=== PATIENT | female | born 2000 | race African-American/Black ===

== ENCOUNTER 2020-01-02 16:07 | Emergency (ER) | payer OTHER, SELFPAY ==
[2020-01-02] VITALS (10 sets, daily range): BP systolic 116–151; BP diastolic 65–80; PULSE 102–107; RESP 18; TEMP 37.1; O2SAT 97–100; BMI 30.7
[2020-01-02 16:45] LABS: Bacteria Urine Few (2-10); Culture Indicated Urine Specimen Cultured; Mucus Urine 2+ (Negative); RBC Urine 0-1/HPF (0-5/HPF); Squamous Epithelial Cell Urine 1-5 /HPF (0-5/HPF); WBC Urine 5-10/HPF (0-5/HPF)
[2020-01-02] MEDS: ONDANSETRON 4 MG/2 ML INJ IV (18:30)
[2020-01-02] MEDS: SODIUM CHLORIDE 0.9% 1,000 ML 1000 ML IV (18:30)
[2020-01-02 18:35] LABS: Add Manual Diff / Slide Review NO; Basophils Absolute Auto 100 /uL (0-100); Basophils Percent Auto 0.5 % (0-2); Eosinophils Absolute Auto 100 /uL (0-450); Eosinophils Percent Auto 0.5 % (2-4); Hematocrit 36.6 % (36-46); Hemoglobin 12.4 g/dL (12.0-16.0); Lymphocytes Absolute Auto 1700 /uL (1100-4500); Lymphocytes Percent Auto 15.1 % (25-40); Mean Corpuscular HGB Conc 33.9 % (30-36); Mean Corpuscular Hemoglobin 28.5 PG (26-34); Mean Corpuscular Volume 84.1 fL (80-100); Monocytes Absolute Auto 700 /uL (0-900); Monocytes Percent Auto 6.6 % (3-14); Neutrophils Absolute Auto 8800 /uL (1500-7000); Neutrophils Percent Auto 77.3 % (50-75); Platelet Count 348 X10^3/uL (150-400); Red Blood Cell Count 4.35 X10^6/uL (4.0-5.2); Red Cell Distribution Width 13.1 % (11.6-14.8); White Blood Cell Count 11.4 X10^3/uL (4.5-11.0)
[2020-01-02 18:44] LABS: INR 1.1 (0.9-1.3); Prothrombin Time 12.3 SECONDS (10.1-12.7)
[2020-01-02 18:47] LABS: PTT Partial Thromboplastin Tim 31 SECONDS (26.4-36.2)
[2020-01-02 18:48] LABS: Alanine Aminotransferase 40 IU/L (<35); Albumin 4.7 g/dL (3.5-5.0); Albumin Globulin Ratio 1.2 (1.0-2.8); Alkaline Phosphatase 92 U/L (38-126); Amylase 48 U/L (30-110); Aspartate Aminotransferase 35 IU/L (14-36); BUN Creatinine Ratio 17.7 (6-22); Bilirubin Total 1.1 mg/dL (0.2-1.3); Blood Urea Nitrogen 14 mg/dL (7-17); Calcium 9.7 mg/dL (8.4-10.2); Carbon Dioxide 29 mmol/L (22-32); Chloride 99 mmol/L (98-107); Estimated Glomerular Filt Rate > 60.0 mL/min (>60); Globulin 3.9 g/dL (1.7-4.1); Glucose 95 mg/dL (70-100); HEMOLYSIS < 15 (0-50); Lipase 30 U/L (23-300); Sodium 137 mmol/L (137-145); Total Protein 8.6 g/dL (6.3-8.2)
[2020-01-02] MEDS: KETOROLAC 60 MG/2 ML VIAL 30 MG IV (19:08)
[2020-01-02] MEDS: metroNIDAZOLE 250 MG TABLET 500 MG PO (20:07)
[2020-01-02] MEDS: DOXYCYCLINE HYCLATE 100 MG TABLET PO (20:07)
--- NOTE | 2020-01-02 20:20 | ED.FEMALEGU ---
HPI - Female Genitourinary <FABIAN HullBC - Last Filed: 01/02/20 20:47> General Chief complaint: Urogenital-Female Stated complaint: Uterine Contractions and Pain, Has IUD Time Seen by Provider: 01/02/20 17:11 Source: patient Mode of arrival: Ambulatory Limitations: no limitations History of Present Illness HPI Narrative: The patient is a 19-year-old female who denies pertinent medical history presents with a chief complaint of pelvic cramping. She states it has been about over the past day. She denies any fevers complains of nausea no vomiting. She does have an IUD. She states she recently had a pelvic ultrasound done less than a month ago. She denies any specific spot of pain rather general lower abdominal pain. No fevers. No cough or congestion. She denies any dysuria urgency or frequency. She denies any genital rashes. She denies any known sexually transmitted infection exposures, though states that her cheated on her recently so she is concerned that she might have been exposed to something she did not know about. Related Data Previous Rx's Medication Instructions Recorded doxycycline hyclate 100 mg PO BID 14 Days #28 tab 01/02/20 metronidazole [Flagyl] 500 mg PO BID 14 Days #28 tab 01/02/20 nitrofurantoin monohyd/m-cryst 100 mg PO Q12H 7 Days #14 cap 01/02/20 [Macrobid] Allergies Allergy/AdvReac Type Severity Reaction Status Date / Time No Known Drug Allergies Allergy Verified 01/02/20 17:02 Review of Systems <SPENCER Hull - Last Filed: 01/02/20 20:47> Review of Systems Narrative: GENERAL: Denies chills, fatigue, malaise, fever, sweats. HEENT: Denies sinus pain, ear pain, sore throat, difficulty swallowing, dizziness. RESPIRATORY: Denies dyspnea, cough, wheezing, hemoptysis, sputum. CARDIOVASCULAR: Denies chest pain, palpitations, orthopnea, edema, GASTROINTESTINAL: Denies nausea, vomiting, abdominal pain, diarrhea, constipation, melena. : See HPI MUSCULOSKELETAL: denies weakness, joint pain, or bony pain SKIN: Denies rash, skin lesions, or other NEUROLOGIC: Denies weakness, headache, numbness, change in speech, confusion, seizures, incoordination. PSYCHIATRIC: No concerning psychosocial issues. 12 point review of systems is negative except for those stated above Patient History <SPENCER Hull - Last Filed: 01/02/20 20:47> Substance Use Type: does not use Exam <SPENCER Hull - Last Filed: 01/02/20 20:47> Narrative Exam Narrative: GENERAL: This is a well-nourished, well-developed patient, in no acute distress HEAD: Atraumatic. Normocephalic. No temporal or scalp tenderness. EYES: Pupils equal round and reactive. Extraocular motions intact. No scleral icterus. No injection or drainage. ENT: Nose without bleeding, purulent drainage or septal hematoma. Throat without erythema, tonsillar hypertrophy or exudate. Uvula midline. Airway patent. NECK: Trachea midline. No JVD or lymphadenopathy. Supple, nontender, no meningeal signs. CARDIOVASCULAR: Regular rate and rhythm RESPIRATORY: Clear to auscultation. Breath sounds equal bilaterally. No wheezes, rales, or rhonchi. No cough. No increased respiratory effort. No accessory muscle use. GASTROINTESTINAL: Abdomen soft, diffuse suprapubic tenderness, nondistended. No hepato-splenomegaly, or palpable masses. No guarding. : With Chance RN at bedside for media consultant outside sales, no obvious rashes, yellowish creamy vaginal discharge noted at cervical os. cervical motion tenderness on exam. EXTREMITIES: No clubbing, cyanosis, or edema. No joint tenderness, effusion, or edema noted. BACK: Nontender without deformity or crepitance. No flank tenderness. NEURO: AOx3. SKIN: No rash or erythema on visible skin Initial Vital Signs Initial Vital Signs: Vital Signs Pulse Rate 107 H 01/02/20 17:00 Pulse Oximetry 100 01/02/20 17:00 <Nehemiah Reese DO - Last Filed: 01/02/20 20:55> Initial Vital Signs Initial Vital Signs: Vital Signs Pulse Rate 107 H 01/02/20 17:00 Pulse Oximetry 100 01/02/20 17:00 Scores <SPENCER Hull - Last Filed: 01/02/20 20:47> GCS Sameera coma scale eye opening: Spontaneous Sameera coma scale verbal response: Orientated Sameera coma scale motor response: Obey commands Sameera coma scale total score: 15 Course <Joann Ethan SEED LABORATORY ASSISTANT-BC - Last Filed: 01/02/20 20:47> Orders Ordered: ED Orders 01/02/20 16:25 Urine Culture Stat Urine Microscopic Stat 01/02/20 18:25 Amylase Stat Complete Blood Count AUTO DIFF Stat Comprehensive Metabolic Panel Stat Lipase Stat Partial Thromboplastin Time Stat Prothrombin Time INR Stat 01/02/20 18:55 Chlamydia Gonorrhea PCR -URINE Stat Genital Culture Stat 01/02/20 19:20 Wet Prep Tric BV Tenisha Stat Discontinued Medications Hydrocodone Bitart/Acetaminophen ([place] 5/325) 1 tab PO NOW ONE Stop: 01/02/20 20:18 Last Admin: 01/02/20 20:27 Dose: 1 tab Documented by: ROBERT Hydrocodone Bitart/Acetaminophen (Vicodin 5/325 Prepack) 1 bottle MISC SEEINSTR ONE Stop: 01/02/20 20:18 Last Admin: 01/02/20 20:27 Dose: 1 bottle Documented by: ROBERT Ceftriaxone Sodium (Rocephin) 250 mg IM NOW ONE Stop: 01/02/20 19:51 Last Admin: 01/02/20 20:28 Dose: 250 mg Documented by: ROBERT Doxycycline Hyclate (Vibramycin) 100 mg PO NOW ONE Stop: 01/02/20 19:49 Last Admin: 01/02/20 20:07 Dose: 100 mg Documented by: ROBERT Sodium Chloride (Normal Saline 0.9%) 1,000 mls @ 1,000 mls/hr IV BOLUS ONE Stop: 01/02/20 18:48 Last Infusion: 01/02/20 19:54 Dose: 0 mls/hr Documented by: Admin: 01/02/20 18:30 Dose: 1,000 mls/hr Documented by: ROBERT Ketorolac Tromethamine (Toradol) 30 mg IV NOW ONE Stop: 01/02/20 18:40 Last Admin: 01/02/20 19:08 Dose: 30 mg Documented by: ROBERT Metronidazole (Metronidazole) 500 mg PO NOW ONE Stop: 01/02/20 19:49 Last Admin: 01/02/20 20:07 Dose: 500 mg Documented by: ROBERT Nitrofurantoin Macrocrystals (Macrobid 100 Mg Capsule) 100 mg PO NOW ONE Stop: 01/02/20 20:18 Last Admin: 01/02/20 20:27 Dose: 100 mg Documented by: ROBERT Ondansetron HCl (Zofran) 4 mg IV NOW ONE Stop: 01/02/20 17:50 Last Admin: 01/02/20 18:30 Dose: 4 mg Documented by: ROBERT Ondansetron HCl (Zofran Odt Prepack) 1 bottle MISC SEEINSTR ONE Stop: 01/02/20 20:18 Last Admin: 01/02/20 20:27 Dose: 1 bottle Documented by: ROBERT Vital Signs Vital signs: Vital Signs - 8 hr 01/02/20 17:00 01/02/20 17:02 01/02/20 17:30 Temperature 98.8 F Pulse Rate 107 H 102 H 104 H Respiratory Rate 18 Blood Pressure 151/67 H Pulse Oximetry 100 100 100 01/02/20 18:00 01/02/20 18:29 01/02/20 18:30 Temperature Pulse Rate 102 H 103 H 103 H Respiratory Rate Blood Pressure 116/80 Pulse Oximetry 100 100 100 01/02/20 18:48 01/02/20 18:49 01/02/20 20:35 Temperature Pulse Rate 103 H Respiratory Rate Blood Pressure 125/65 Pulse Oximetry 98 98 01/02/20 20:36 Temperature Pulse Rate 106 H Respiratory Rate Blood Pressure 118/76 Pulse Oximetry 97 <Nehemiah Reese DO - Last Filed: 01/02/20 20:55> Orders Ordered: ED Orders 01/02/20 16:25 Urine Culture Stat Urine Microscopic Stat 01/02/20 18:25 Amylase Stat Complete Blood Count AUTO DIFF Stat Comprehensive Metabolic Panel Stat Lipase Stat Partial Thromboplastin Time Stat Prothrombin Time INR Stat 01/02/20 18:55 Chlamydia Gonorrhea PCR -URINE Stat Genital Culture Stat 01/02/20 19:20 Wet Prep Tric BV Tenisha Stat Discontinued Medications Hydrocodone Bitart/Acetaminophen ([place] 5/325) 1 tab PO NOW ONE Stop: 01/02/20 20:18 Last Admin: 01/02/20 20:27 Dose: 1 tab Documented by: ROBERT Hydrocodone Bitart/Acetaminophen (Vicodin 5/325 Prepack) 1 bottle MISC SEEINSTR ONE Stop: 01/02/20 20:18 Last Admin: 01/02/20 20:27 Dose: 1 bottle Documented by: ROBERT Ceftriaxone Sodium (Rocephin) 250 mg IM NOW ONE Stop: 01/02/20 19:51 Last Admin: 01/02/20 20:28 Dose: 250 mg Documented by: ROBERT Doxycycline Hyclate (Vibramycin) 100 mg PO NOW ONE Stop: 01/02/20 19:49 Last Admin: 01/02/20 20:07 Dose: 100 mg Documented by: ROBERT Sodium Chloride (Normal Saline 0.9%) 1,000 mls @ 1,000 mls/hr IV BOLUS ONE Stop: 01/02/20 18:48 Last Infusion: 01/02/20 19:54 Dose: 0 mls/hr Documented by: Admin: 01/02/20 18:30 Dose: 1,000 mls/hr Documented by: ROBERT Ketorolac Tromethamine (Toradol) 30 mg IV NOW ONE Stop: 01/02/20 18:40 Last Admin: 01/02/20 19:08 Dose: 30 mg Documented by: ROBERT Metronidazole (Metronidazole) 500 mg PO NOW ONE Stop: 01/02/20 19:49 Last Admin: 01/02/20 20:07 Dose: 500 mg Documented by: ROBERT Nitrofurantoin Macrocrystals (Macrobid 100 Mg Capsule) 100 mg PO NOW ONE Stop: 01/02/20 20:18 Last Admin: 01/02/20 20:27 Dose: 100 mg Documented by: ROBERT Ondansetron HCl (Zofran) 4 mg IV NOW ONE Stop: 01/02/20 17:50 Last Admin: 01/02/20 18:30 Dose: 4 mg Documented by: ROBERT Ondansetron HCl (Zofran Odt Prepack) 1 bottle MISC SEEINSTR ONE Stop: 01/02/20 20:18 Last Admin: 01/02/20 20:27 Dose: 1 bottle Documented by: ROBERT Vital Signs Vital signs: Vital Signs - 8 hr 01/02/20 17:00 01/02/20 17:02 01/02/20 17:30 Temperature 98.8 F Pulse Rate 107 H 102 H 104 H Respiratory Rate 18 Blood Pressure 151/67 H Pulse Oximetry 100 100 100 01/02/20 18:00 01/02/20 18:29 01/02/20 18:30 Temperature Pulse Rate 102 H 103 H 103 H Respiratory Rate Blood Pressure 116/80 Pulse Oximetry 100 100 100 01/02/20 18:48 01/02/20 18:49 01/02/20 20:35 Temperature Pulse Rate 103 H Respiratory Rate Blood Pressure 125/65 Pulse Oximetry 98 98 01/02/20 20:36 Temperature Pulse Rate 106 H Respiratory Rate Blood Pressure 118/76 Pulse Oximetry 97 MDM - Female Genitourinary <Joann Long, SEED LABORATORY ASSISTANT- - Last Filed: 01/02/20 20:47> Lab Data Result diagrams: 01/02/20 18:25 01/02/20 18:25 Labs: Lab Results 01/02/20 01/02/20 01/02/20 Range/Units 16:25 18:25 18:25 WBC 11.4 H (4.5-11.0) X10^3/uL RBC 4.35 (4.0-5.2) X10^6/uL Hgb 12.4 (12.0-16.0) g/dL Hct 36.6 (36-46) % MCV 84.1 (80-100) fL MCH 28.5 (26-34) PG MCHC 33.9 (30-36) % RDW 13.1 (11.6-14.8) % Plt Count 348 (150-400) X10^3/uL Neut % (Auto) 77.3 H (50-75) % Lymph % (Auto) 15.1 L (25-40) % [place] % (Auto) 6.6 (3-14) % Eos % (Auto) 0.5 L (2-4) % Baso % (Auto) 0.5 (0-2) % Neut # (Auto) 8800 H (5579-9283) /uL Lymph # (Auto) 1700 (9122-0572) /uL [place] # (Auto) 700 (0-900) /uL Eos # (Auto) 100 (0-450) /uL Baso # (Auto) 100 (0-100) /uL PT 12.3 (10.1-12.7) SECONDS INR 1.1 (0.9-1.3) APTT 31 (26.4-36.2) SECONDS Sodium (137-145) mmol/L Potassium (3.4-5.1) mmol/L Chloride (98-107) mmol/L Carbon Dioxide (22-32) mmol/L BUN (7-17) mg/dL Creatinine (0.52-1.04) mg/dL Estimated GFR (>60) mL/min BUN/Creatinine Ratio (6-22) Glucose (70-100) mg/dL Calcium (8.4-10.2) mg/dL Total Bilirubin (0.2-1.3) mg/dL AST (14-36) IU/L ALT (<35) IU/L Alkaline Phosphatase (38-126) U/L Total Protein (6.3-8.2) g/dL Albumin (3.5-5.0) g/dL Globulin (1.7-4.1) g/dL Albumin/Globulin Ratio (1.0-2.8) Amylase (30-110) U/L Lipase (23-300) U/L Urine RBC 0-1/hpf (0-5/HPF) Urine WBC 5-10/hpf H (0-5/HPF) Ur Squamous Epith Cells 1-5 /hpf (0-5/HPF) Urine Bacteria Few (2-10) H (None) Urine Mucus 2+ H (Negative) Ur Culture Indicated? Specimen cultured 01/02/20 Range/Units 18:25 WBC (4.5-11.0) X10^3/uL RBC (4.0-5.2) X10^6/uL Hgb (12.0-16.0) g/dL Hct (36-46) % MCV (80-100) fL MCH (26-34) PG MCHC (30-36) % RDW (11.6-14.8) % Plt Count (150-400) X10^3/uL Neut % (Auto) (50-75) % Lymph % (Auto) (25-40) % [place] % (Auto) (3-14) % Eos % (Auto) (2-4) % Baso % (Auto) (0-2) % Neut # (Auto) (1440-1966) /uL Lymph # (Auto) (9717-2338) /uL [place] # (Auto) (0-900) /uL Eos # (Auto) (0-450) /uL Baso # (Auto) (0-100) /uL PT (10.1-12.7) SECONDS INR (0.9-1.3) APTT (26.4-36.2) SECONDS Sodium 137 (137-145) mmol/L Potassium 4.0 (3.4-5.1) mmol/L Chloride 99 (98-107) mmol/L Carbon Dioxide 29 (22-32) mmol/L BUN 14 (7-17) mg/dL Creatinine 0.79 (0.52-1.04) mg/dL Estimated GFR > 60.0 (>60) mL/min BUN/Creatinine Ratio 17.7 (6-22) Glucose 95 (70-100) mg/dL Calcium 9.7 (8.4-10.2) mg/dL Total Bilirubin 1.1 (0.2-1.3) mg/dL AST 35 (14-36) IU/L ALT 40 H (<35) IU/L Alkaline Phosphatase 92 (38-126) U/L Total Protein 8.6 H (6.3-8.2) g/dL Albumin 4.7 (3.5-5.0) g/dL Globulin 3.9 (1.7-4.1) g/dL Albumin/Globulin Ratio 1.2 (1.0-2.8) Amylase 48 (30-110) U/L Lipase 30 (23-300) U/L Urine RBC (0-5/HPF) Urine WBC (0-5/HPF) Ur Squamous Epith Cells (0-5/HPF) Urine Bacteria (None) Urine Mucus (Negative) Ur Culture Indicated? Point of Care Testing Test Results Negative Urine Dip Bedside Urine Glucose Negative Bedside Urine Bilirubin - Negative Bedside Urine Ketone - Negative Urine Specific [place] 1.020 Bedside Urine Occult Blood - Negative Bedside Urine pH 6.0 Bedside Urine Protein +/- 15 Bedside Urine Urobilinogen - Negative Bedside Urine Nitrite - Negative Bedside Urine Leukocytes + 70 Esterase MDM Narrative Medical decision making narrative: The patient is a 19-year-old female who presents with a chief complaint of pelvic pain. She is concerned about sexually chance that it infections as her recently cheated on her before she moved away from him. She appears well, is nontoxic afebrile has no leukocytosis on her labs. Her exam is concerning for PID was cervical motion tenderness, so she was given 250 ceftriaxone in the emergency department and started on doxycycline. She is noted to have clue cells on her labs, was started on Flagyl. She does not have any focal tenderness, has a recent pelvic ultrasound, so we will hold off on that today. I discussed at length the importance of following up with primary care provider in the next few days for recheck and coming back to the emergency department for any acute concerns. Patient has no questions or concerns upon discharge and states understanding return precautions as well as follow-up care. <Nehemiah Reese, DO - Last Filed: 01/02/20 20:55> Lab Data Labs: Lab Results 01/02/20 01/02/20 01/02/20 Range/Units 16:25 18:25 18:25 WBC 11.4 H (4.5-11.0) X10^3/uL RBC 4.35 (4.0-5.2) X10^6/uL Hgb 12.4 (12.0-16.0) g/dL Hct 36.6 (36-46) % MCV 84.1 (80-100) fL MCH 28.5 (26-34) PG MCHC 33.9 (30-36) % RDW 13.1 (11.6-14.8) % Plt Count 348 (150-400) X10^3/uL Neut % (Auto) 77.3 H (50-75) % Lymph % (Auto) 15.1 L (25-40) % [place] % (Auto) 6.6 (3-14) % Eos % (Auto) 0.5 L (2-4) % Baso % (Auto) 0.5 (0-2) % Neut # (Auto) 8800 H (2561-0068) /uL Lymph # (Auto) 1700 (8267-0305) /uL [place] # (Auto) 700 (0-900) /uL Eos # (Auto) 100 (0-450) /uL Baso # (Auto) 100 (0-100) /uL PT 12.3 (10.1-12.7) SECONDS INR 1.1 (0.9-1.3) APTT 31 (26.4-36.2) SECONDS Sodium (137-145) mmol/L Potassium (3.4-5.1) mmol/L Chloride (98-107) mmol/L Carbon Dioxide (22-32) mmol/L BUN (7-17) mg/dL Creatinine (0.52-1.04) mg/dL Estimated GFR (>60) mL/min BUN/Creatinine Ratio (6-22) Glucose (70-100) mg/dL Calcium (8.4-10.2) mg/dL Total Bilirubin (0.2-1.3) mg/dL AST (14-36) IU/L ALT (<35) IU/L Alkaline Phosphatase (38-126) U/L Total Protein (6.3-8.2) g/dL Albumin (3.5-5.0) g/dL Globulin (1.7-4.1) g/dL Albumin/Globulin Ratio (1.0-2.8) Amylase (30-110) U/L Lipase (23-300) U/L Urine RBC 0-1/hpf (0-5/HPF) Urine WBC 5-10/hpf H (0-5/HPF) Ur Squamous Epith Cells 1-5 /hpf (0-5/HPF) Urine Bacteria Few (2-10) H (None) Urine Mucus 2+ H (Negative) Ur Culture Indicated? Specimen cultured 01/02/20 Range/Units 18:25 WBC (4.5-11.0) X10^3/uL RBC (4.0-5.2) X10^6/uL Hgb (12.0-16.0) g/dL Hct (36-46) % MCV (80-100) fL MCH (26-34) PG MCHC (30-36) % RDW (11.6-14.8) % Plt Count (150-400) X10^3/uL Neut % (Auto) (50-75) % Lymph % (Auto) (25-40) % [place] % (Auto) (3-14) % Eos % (Auto) (2-4) % Baso % (Auto) (0-2) % Neut # (Auto) (8406-3514) /uL Lymph # (Auto) (1260-3962) /uL [place] # (Auto) (0-900) /uL Eos # (Auto) (0-450) /uL Baso # (Auto) (0-100) /uL PT (10.1-12.7) SECONDS INR (0.9-1.3) APTT (26.4-36.2) SECONDS Sodium 137 (137-145) mmol/L Potassium 4.0 (3.4-5.1) mmol/L Chloride 99 (98-107) mmol/L Carbon Dioxide 29 (22-32) mmol/L BUN 14 (7-17) mg/dL Creatinine 0.79 (0.52-1.04) mg/dL Estimated GFR > 60.0 (>60) mL/min BUN/Creatinine Ratio 17.7 (6-22) Glucose 95 (70-100) mg/dL Calcium 9.7 (8.4-10.2) mg/dL Total Bilirubin 1.1 (0.2-1.3) mg/dL AST 35 (14-36) IU/L ALT 40 H (<35) IU/L Alkaline Phosphatase 92 (38-126) U/L Total Protein 8.6 H (6.3-8.2) g/dL Albumin 4.7 (3.5-5.0) g/dL Globulin 3.9 (1.7-4.1) g/dL Albumin/Globulin Ratio 1.2 (1.0-2.8) Amylase 48 (30-110) U/L Lipase 30 (23-300) U/L Urine RBC (0-5/HPF) Urine WBC (0-5/HPF) Ur Squamous Epith Cells (0-5/HPF) Urine Bacteria (None) Urine Mucus (Negative) Ur Culture Indicated? Point of Care Testing Test Results Negative Urine Dip Bedside Urine Glucose Negative Bedside Urine Bilirubin - Negative Bedside Urine Ketone - Negative Urine Specific [place] 1.020 Bedside Urine Occult Blood - Negative Bedside Urine pH 6.0 Bedside Urine Protein +/- 15 Bedside Urine Urobilinogen - Negative Bedside Urine Nitrite - Negative Bedside Urine Leukocytes + 70 Esterase Discharge Plan Departure Patient Disposition: Home Clinical Impression: Bacterial vaginosis, Acute pelvic inflammatory disease Urinary tract infection Qualifiers: Urinary tract infection type: site unspecified Hematuria presence: without hematuria Qualified Code(s): N39.0 - Urinary tract infection, site not specified Discharge Date/Time: 01/02/20 20:50 Instructions: DI for Pelvic Inflammatory Disease, DI for Urinary Tract Infection (UTI), DI for Bacterial Vaginosis Activity Restrictions/Additional Instructions: Thank you for trusting us with your care today Today we found a urinary tract infection, bacterial vaginosis with pelvic inflammatory disease We have given you take-home nausea and pain medicine. I sent 3 prescriptions to [facility] in [place]. This includes doxycycline and Flagyl as well as Macrobid. Please take these medications with a probiotic or yogurt to help prevent antibiotic associated upset stomach Please follow-up with primary care provider in the next few days. Please come back to emergency department for any acute concerns. Prescriptions: New doxycycline hyclate 100 mg tablet 100 mg PO BID 14 Days Qty: 28 RF: 0 metronidazole [Flagyl] 500 mg tablet 500 mg PO BID 14 Days Qty: 28 RF: 0 nitrofurantoin monohyd/m-cryst [Macrobid] 100 mg capsule 100 mg PO Q12H 7 Days Qty: 14 RF: 0 Referrals: [facility] [Provider Group] [facility] [Outside] <Nehemiah Reese, DO - Last Filed: 01/02/20 20:55> [facility] Dr Reese Co-Sign Statement: I was available for consultation during this patient's emergency department visit. This chart is signed by myself for administrative purposes only. I did not have direct contact with this patient during this visit. They were seen independently by the APC.
[2020-01-02] MEDS: ONDANSETRON 4 MG ODT PREPACK 1 BOTTLE MISC (20:27)
[2020-01-02] MEDS: NITROFURANTOIN ER 100 MG CAPSULE PO (20:27)
[2020-01-02] MEDS: HYDROCODONE/ACET 5/325 PREPACK 1 BOTTLE MISC (20:27)
[2020-01-02] MEDS: HYDROCODONE/ACET 5/325 TABLET 1 TAB PO (20:27)
[2020-01-02] MEDS: cefTRIAXone 500 MG VIAL 250 MG IM (20:28)
[2020-01-02] MEDS: LIDOCAINE 1% (PF) 2 ML (20:29)
[2020-01-02 21:05] LABS: Urine Chlamydia NOT DETECTED
[2020-01-04 15:33] LABS: Urine N gonorrhoeae DETECTED
--- NOTE | 2020-01-06 09:17 | PC.NURSE ---
reviewed positive Gonorrhea results with Dr. Whiting. pt received Rocephin IM. no further treatment needed.
== END 2020-01-02 20:50 | disposition home or self-care (01) ==
PROVIDERS: Emergency Medicine; Emergency Provider Nurse Practitioner Family
DX: N73.0 Acute parametritis and pelvic cellulitis (principal); N76.0 Acute vaginitis; N39.0 Urinary tract infection, site not specified; Z97.5 Presence of (intrauterine) contraceptive device
CPT/HCPCS: 36415; 80053; 81003; 81015; 81025; 82150; 83690; 85025; 85610; 85730; 87070; 87086; 87147; 87205; 87210; 87252; 87491; 87591; 96361; 96372; 96374; 96375; 99284; 99285; J0696; J1885; J2405

== ENCOUNTER 2021-07-01 14:58 | Emergency (ER) | payer OTHER, SELFPAY ==
[2021-07-01 15:15] VITALS: BP 128/75; PULSE 82; RESP 20; TEMP 36.2; O2SAT 100; BMI 29.1
--- NOTE | 2021-07-01 19:48 | PC.NURSE ---
Skin at tailbone has area of redness, very tender to touch. Do not appreciate significant fluid collection under the skin although very tender to touch. Patient noticed a bump a month ago but pain did not start till last couple days. Not taking anything for pain at home, patient denies fevers at home however feels overall ill
--- NOTE | 2021-07-01 20:02 | ED.SKABFB ---
HPI - Skin/Abscess/Foreign Bdy General Chief complaint: Skin/Abscess/Foreign Body Stated complaint: Lump above tailbone and hurt and has grown Time Seen by Provider: 07/01/21 20:02 Source: patient Mode of arrival: Family Vehicle Limitations: no limitations History of Present Illness HPI narrative: This is a 20-year-old female comes emergency department complaint of a lump above her tailbone. She states there has been a small lump for about a month with the last several days it has become increasingly painful and swollen. Patient states she can not even sit on that area any longer even walking is uncomfortable. She has not had any drainage. She has felt warm at home. She has felt a little nauseated but not vomiting. She states the pain is been radiating outwards. She is not having any pain with bowel movements. She has not any issues with urination. She has not noticed any rashes or skin changes otherwise. She states she is otherwise healthy she has had a gastric sleeve and breast reduction in the past. She denies any drug allergies. Related Data Previous Rx's Medication Instructions Recorded doxycycline hyclate 100 mg tablet 100 mg PO BID #14 tab 07/01/21 hydrocodone 5 mg-acetaminophen 325 1 tab PO QID PRN #10 tab 07/01/21 mg tablet Allergies Allergy/AdvReac Type Severity Reaction Status Date / Time No Known Drug Allergies Allergy Verified 07/01/21 15:21 Review of Systems Review of Systems ROS Unobtainable: All systems reviewed & are unremarkable except as noted in HPI and below Patient History Social History Smoking Status: Never smoker Smoking Status: Never smoker alcohol intake frequency: 0-2 drinks per day Substance Use Type: does not use Exam Narrative Exam Narrative: GENERAL: Alert and oriented x three, female in mild distress. HEENT: Head normocephalic, atraumatic, EOMI, pupils reactive, face symmetric, moist mucous membranes NECK: Supple, full range of motion CARDIOVASCULAR: Regular rate and rhythm without murmurs, rubs or gallops. RESPIRATORY: Breath sounds equal bilaterally, no wheezes rales or rhonchi. ABDOMEN: Soft, nontender. Normoactive bowel sounds all 4 quadrants. No guarding or rebound, rigidity, no mass. Patient has an area fluctuance that is 1/2 cm at the top of the gluteal crease and just to the right of the crease. There is some warmth and erythema. There is no surrounding induration appreciated beyond that area. Patient is quite tender to touch. : No CVA tenderness EXTREMITIES: Normal range of motion, no clubbing or edema. Neurovascularly intact NEUROLOGICAL: Cranial nerves II through XII grossly intact. Moving all extremities SKIN: Warm, dry, no petechiae, no rashes or lesions. Initial Vital Signs Initial Vital Signs: Vital Signs Temperature 97.1 F L 07/01/21 15:15 Pulse Rate 82 07/01/21 15:15 Respiratory Rate 20 07/01/21 15:15 Blood Pressure 128/75 07/01/21 15:15 Pulse Oximetry 100 07/01/21 15:15 Procedures Abscess I/D I&D #1: Time of procedure: 20:51 Site: other (gluteal cleft) Side (if applicable): left Sedation/analgesia: none Local Anesthetic: lidocaine 1% Amount of anesthesia used (mL): 4 Technique: incised with #11 blade Amount of fluid expressed (mL): 5 Irrigation: Yes Packing used?: iodoform Course Orders Ordered: ED Orders 07/01/21 21:28 Wound Culture and Gram Stain Stat Discontinued Medications Hydrocodone Bitart/Acetaminophen (Hydrocodone/Acet 5/325 Tablet) 2 tab PO NOW ONE Stop: 07/01/21 20:25 Last Admin: 07/01/21 20:28 Dose: 2 tab Documented by: WILMA Hydrocodone Bitart/Acetaminophen (Hydrocodone/Acet 5/325 Prepack) 1 bottle MISC SEEINSTR ONE Stop: 07/01/21 20:49 Last Admin: 07/01/21 20:55 Dose: 1 bottle Documented by: WILMA Doxycycline Hyclate (Doxycycline Hyclate 100 Mg Tablet) 100 mg PO NOW ONE Stop: 07/01/21 20:49 Last Admin: 07/01/21 20:55 Dose: 100 mg Documented by: WILMA Lidocaine/Sodium Bicarbonate (Lido 1%/Sod Bicarb 8.4% (10ml) 10 Ml Syringe) 10 ml INJ NOW ONE Stop: 07/01/21 20:25 Last Admin: 07/01/21 20:29 Dose: 10 ml Documented by: WILMA Morphine Sulfate (Morphine 2 Mg/Ml Inj) 2 mg IV NOW ONE Stop: 07/01/21 20:07 Last Admin: 07/01/21 20:13 Dose: Not Given Documented by: WILMA Ondansetron HCl (Ondansetron 4 Mg/2 Ml Inj) 4 mg IV NOW ONE Stop: 07/01/21 20:07 Last Admin: 07/01/21 20:13 Dose: Not Given Documented by: WILMA Vital Signs Vital signs: Vital Signs - 8 hr 07/01/21 20:57 Temperature 98.0 F Pulse Rate 66 Respiratory Rate 16 Blood Pressure 111/67 Pulse Oximetry 100 MDM - Skin/Abscess/Foreign Bdy MDM Narrative Medical decision making narrative: This is a 20-year-old female with abscess at the top of the gluteal cleft. Likely with a pilonidal cyst that became infected. Area is warm, fluctuant and tender. Patient had I&D which had a small to moderate amount of purulent drainage. Culture was obtained. Patient was started on oral doxycycline and discharged home with a short course of pain medication. Return precautions discussed. Discharge Plan Departure Patient Disposition: Home Clinical Impression: Abscess of gluteal region Instructions: DI for Skin Abscess Activity Restrictions/Additional Instructions: Follow-up in the next 2-3 days for recheck. If packing has not fallen in 48 hours you may gently pull it. If it falls out on its own do not try to replace it. I would recommend warm baths or warm compresses to the affected area 4 times daily. You may take Sentinel 1-2 tablet every 6 hours as needed. You may also take ibuprofen up to 800 mg every 8 hours as needed with this. Take antibiotics until completely gone. Prescription sent to [facility] in [place]. Please return for fevers, increasing redness, swelling, worsening drainage, vomiting, spreading pain, pain with bowel movements or other new or concerning symptoms. Prescriptions: New hydrocodone-acetaminophen 5-325 mg tablet 1 tab PO QID PRN (Reason: pain) Qty: 10 0RF doxycycline hyclate 100 mg tablet 100 mg PO BID Qty: 14 0RF
[2021-07-01] MEDS: HYDROCODONE/ACET 5/325 TABLET 2 TAB PO (20:28)
[2021-07-01] MEDS: LIDO 1%/SOD BICARB 8.4% (10ML) 10 ML SYRINGE INJ (20:29)
[2021-07-01] MEDS: DOXYCYCLINE HYCLATE 100 MG TABLET PO (20:55)
[2021-07-01] MEDS: HYDROCODONE/ACET 5/325 PREPACK 1 BOTTLE MISC (20:55)
[2021-07-01 20:57] VITALS: BP 111/67; PULSE 66; RESP 16; TEMP 36.7; O2SAT 100
== END 2021-07-01 20:58 | disposition home or self-care (01) ==
PROVIDERS: Emergency Provider Emergency Medicine
DX: L02.31 Cutaneous abscess of buttock (principal); R11.0 Nausea
CPT/HCPCS: 10060; 87070; 87075; 87205; 99283; 99284